=== PATIENT | female | born 1960 | race Two or more races ===

== ENCOUNTER 2018-03-09 22:13 | Emergency (ER) | payer SELFPAY ==
[~2018-03-09] VITALS: Ht 157.5 cm; Wt 77.1 kg
--- NOTE | 2018-03-09 22:18 | NUR ---
Dr. Lopez at bedside for MSE.
[2018-03-09] MEDS ORDERED: HYDROCODONE/APAP 5-325MG TABLET PO ONE (22:45)
[2018-03-09] MEDS ORDERED: HYDROCODONE/APAP 5-325MG TABLET ONE (22:51)
--- NOTE | 2018-03-09 23:44 | NUR ---
Patient discharged to home in stable conditon. Written and verbal after care instructions given. Patient verbalizes understanding of instructions. Pt ambulated out of ER with steady gait, no acute signs of distress, VSS, all belongings taken, to be driven home by son.
[2018-03-09 23:47] VITALS: BP 114/64
== END 2018-03-09 23:49 | disposition home or self-care (01) ==
LOC: ER 22:15
DX: S06.0X0A Concussion without loss of consciousness, initial encounter (principal); S16.1XXA Strain of muscle, fascia and tendon at neck level, initial encounter; S80.01XA Contusion of right knee, initial encounter; S46.001A Unspecified injury of muscle(s) and tendon(s) of the rotator cuff of right shoulder, initial encounter; W01.0XXA Fall on same level from slipping, tripping and stumbling without subsequent striking against object, initial encounter; Y93.89 Activity, other specified; Y92.89 Other specified places as the place of occurrence of the external cause; Y99.8 Other external cause status
CPT/HCPCS: 70450; 72125; 73030; 73564; 99284; A4663